=== PATIENT | female | born 1975 | race Caucasian/White ===

== ENCOUNTER 2025-01-05 12:05 | Emergency (ER) | payer OTHER ==
[~2025-01-05] VITALS: Ht 152.4 cm; Wt 72.0 kg
[2025-01-05 12:12] VITALS: O2SAT 99
[2025-01-05 13:19] LABS: CHLORIDE 105 mEq/L (98-107); POTASSIUM 3.3 mEq/L (3.5-5.1); SODIUM 141 mEq/L (136-145)
[2025-01-05 13:20] LABS: CALCIUM 9.8 mg/dL (8.7-10.4); CARBON DIOXIDE 29 mEq/L (21-32)
[2025-01-05 13:23] LABS: BASOPHILS % 0.1 % (0.0-2.0); DIFFERENTIAL COMMENT 0; HEMOGLOBIN. 12.1 g/dL (12.0-16.0); MEAN CORPUSCULAR HEMOGLOBIN 25.9 pg (28.0-32.0); MEAN CORPUSCULAR HGB CONC 32.7 g/dL (31.0-37.0); MEAN CORPUSCULAR VOLUME 79.3 fL (81.0-99.0); MEAN PLATELET VOLUME 8.4 fl (7.4-10.4); MONOCYTES % 10.8 % (2.0-8.0); NEUTROPHILS % 67.1 % (40.0-76.0); PLATELET 285 x1000/uL (130-400); RED BLOOD CELL COUNT 4.67 mill/uL (4.2-5.4); WHITE BLOOD COUNT 5.6 x1000/uL (4.5-11.0)
[2025-01-05 13:25] LABS: CREATININE 0.7 mg/dL (0.6-1.0); ETHANOL BLOOD < 10 mg/dL (<10); GLUCOSE 113 mg/dL (70-105); UREA NITROGEN BLOOD 14 mg/dL (9-23)
[2025-01-05 13:27] LABS: ACETAMINOPHEN < 2 ug/mL (10-30)
[2025-01-05 16:49] LABS: CLARITY URINE CLOUDY (CLEAR); COLOR URINE YELLOW (YELLOW); GLUCOSE URINE NEGATIVE (NEGATIVE); KETONES URINE TRACE (NEGATIVE); LEUKOCYTE ESTERASE URINE 1+ (NEGATIVE); NITRITE URINE NEGATIVE (NEGATIVE); OCCULT BLOOD URINE NEGATIVE (NEGATIVE); PH URINE 6.5 (4.5-8.0); PROTEIN URINE TRACE (NEGATIVE); SPECIFIC GRAVITY URINE 1.029 (1.005-1.030)
[2025-01-05 17:03] LABS: *AMPHETAMINES SCREEN URINE NEGATIVE (NEGATIVE); *BARBITURATES SCREEN URINE NEGATIVE (NEGATIVE); *BENZODIAZEPINES SCREEN URINE NEGATIVE (NEGATIVE); *COCAINE SCREEN URINE NEGATIVE (NEGATIVE); METHADONE URINE SCREEN NEGATIVE (NEGATIVE)
[2025-01-05 17:04] LABS: CANNABINOID URINE SCREEN NEGATIVE (NEGATIVE); ECSTASY MDMA SCREEN URINE NEGATIVE (NEGATIVE); OPIATES URINE SCREEN NEGATIVE (NEGATIVE); PHENCYCLIDINE URINE SCREEN NEGATIVE (NEGATIVE)
[2025-01-05] MEDS: POTASSIUM CHLORIDE 20MEQ/PACKET PO ONE (17:08)
[2025-01-05 17:09] LABS: RBC URINE 0-2 /hpf (0-2); SQUAMOUS EPITHELIAL CELL URINE 2+ /lpf (RARE/1+)
[2025-01-05 17:10] LABS: BACTERIA URINE 3+
[2025-01-05 20:26] LABS: HCG SCREEN NEGATIVE
[2025-01-05] MEDS: CEPHALEXIN 250MG CAPSULE PO NR (22:10)
[2025-01-05] MEDS: DIPHENHYDRAMINE 50MG/ML VIAL IM STA (22:39)
[2025-01-05] MEDS: HALOPERIDOL LACTATE 5MG/ML VIAL IM ONE (23:16)
[2025-01-06] MEDS ORDERED: LORAZEPAM 2MG/ML INJ IM ONE ×2 (08:15→21:00)
[2025-01-06] MEDS ORDERED: LORAZEPAM 2MG/ML INJ IM NR (08:17)
[2025-01-06] MEDS: LORAZEPAM 2MG/ML UD SYRINGE IM NR (08:22)
[2025-01-06] MEDS: OLANZAPINE 10 MG/VIAL IM ONE (08:29)
[2025-01-06] MEDS: LORAZEPAM 1MG TABLET PO ONE (08:30)
[2025-01-06] MEDS: OLANZAPINE 5MG TABLET PO SCH (21:02)
[2025-01-06] MEDS: HALOPERIDOL LACTATE 5MG/ML VIAL IM ONE (21:02)
[2025-01-06] MEDS: LORAZEPAM 2MG/ML UD SYRINGE IM SCH (21:03)
[2025-01-06] MEDS: DIPHENHYDRAMINE 50MG/ML VIAL IM PRN (21:03)
[2025-01-06 21:13] VITALS: BP 124/59; PULSE 100; RESP 19; TEMP 37.1; O2SAT 99
== END 2025-01-06 21:11 | disposition short-term general hospital (02) ==
LOC: ER 12:05
DX: R44.1 Visual hallucinations (principal); Z20.822 Contact with and (suspected) exposure to COVID-19
CPT/HCPCS: 80305; 80048; 81003; 80307; 80329; 80320; 84703; 85025; 36415; 96372 ×2; 99291; 87426; J1200; J1630; J2060; J3490; G0480